=== PATIENT | male | born 1995 | race African-American/Black ===

== ENCOUNTER 2022-09-19 16:14 | Emergency (ER) | payer SELFPAY ==
[2022-09-19 17:00] LABS: Protime INR 1.35
[2022-09-19 17:19] LABS: Absolute Lymphocytes (CBC) 0.4 K/uL (0.7-4.9); Hematocrit 37.5 % (39.6-49.0); Lymphocytes % 19.6 % (15.3-44.8); MPV 7.5 fL (7.6-11.3); Platelets 169 thou/uL (152-406); RBC Red Blood Cell Count 4.17 M/uL (4.33-5.43)
[2022-09-19 17:41] LABS: ALT/SGPT 21 U/L (16-61); AST/SGOT 21 U/L (15-37); Albumin 3.3 g/dL (3.4-5.0); Alkaline Phosphatase 61 U/L (45-117); BUN Blood Urea Nitrogen 8 mg/dL (7-18); Bicarbonate 27 mEq/L (21-32); Bilirubin Direct 0.2 mg/dL (0-0.2); Bilirubin Indirect, Calculated 0.4 mg/dL (0.2-0.8); Bilirubin Total 0.6 mg/dL (0.2-1.0); Glomerular Filtration Rate 123 ml/min (=/>90); Glucose Level 100 mg/dL (74-106); Potassium 3.4 mEq/L (3.5-5.1); Protein, Total 6.2 g/dL (6.4-8.2); Sodium Level 138 mEq/L (136-145)
[2022-09-19 17:48] LABS: Blood Morphology Comment NOT SEEN (NOT SEEN); Platelet Estimate ADEQ; White Blood Cell Scan OK (OK)
--- NOTE | 2022-09-19 23:05 | ER ---
Nurse's Notes [facility] Name: Santiago Matos Age: 27 yrs Sex: Male : 1995 Arrival Date: 09/19/2022 Time: 16:14 Bed 19 Private MD: Diagnosis: Overdose on CBD Presentation: 09/19 16:20 Chief complaint: EMS states: Reportedly ate half of an edible nerds rope 1250 mg, ap3 "delta 8" and feels, "fed up." EMS reports on arrival to scene patient was tachycardic and vomiting. PIV placed and Zofran 4 mg administered. Pt is awake, but drowsy. Responds to loud verbal stimuli. Coronavirus screen: Client denies travel out of the [place] in the last 14 days. Ebola Screen: Patient denies exposure to infectious person. Patient denies travel to an Ebola-affected area in the 21 days before illness onset. Initial Sepsis Screen: Does the patient meet any 2 criteria? No. Patient's initial sepsis screen is negative. Does the patient have a suspected source of infection? No. Patient's initial sepsis screen is negative. Risk Assessment: Do you want to hurt yourself or someone else? Patient reports no desire to harm self or others. Onset of symptoms was September 19, 2022. 16:20 Method Of Arrival: EMS: [facility] ap3 16:20 Acuity: ABRIL 2 ap3 Historical: - Allergies: 16:23 Unable to obtain; ap3 - Home Meds: 16:26 Unable to obtain [Active]; ap3 - PMHx: 16:27 Unable to Obtain; ap3 - PSHx: 16:26 Unable to Obtain; ap3 - Immunization history:: Adult Immunizations not immunized. - Social history:: Smoking status: unknown. Screenin:19 [facility] ED Fall Risk Assessment (Adult) History of falling in the last 3 months, rs5 including since admission No falls in past 3 months (0 pts) Confusion or Disorientation Yes (5 pts) Intoxicated or Sedated Yes (3 pts) Impaired Gait Yes (1 pt) Mobility Assist Device Used No (0 pt) Altered Elimination No (0 pt) Score/Fall Risk Level 3 or more points = High Risk Oriented to surroundings, Maintained a safe environment, Assessed \\T\\ reinforced patient's understanding of fall precautions, Hourly rounding (assess needs \\T\\ fall precautionary measures) done. 16:19 Abuse screen: Denies threats or abuse. Nutritional screening: No deficits noted. rs5 Tuberculosis screening: No symptoms or risk factors identified. Assessment: 16:19 General: Appears in no apparent distress. comfortable, Behavior is calm, cooperative, rs5 drowsy, quiet. Pain: Denies pain. Neuro: Level of Consciousness is awake, obeys commands, lethargic, stuporous. Cardiovascular: Heart tones S1 S2 Rhythm is regular. Respiratory: Airway is patent Respiratory effort is even, unlabored, shallow, Respiratory pattern is regular, symmetrical, Breath sounds are clear bilaterally. GI: Abdomen is flat, non-distended, Bowel sounds present X 4 quads. Abd is soft and non tender X 4 quads. : No signs and/or symptoms were reported regarding the genitourinary system. EENT: No signs and/or symptoms were reported regarding the EENT system. Derm: Skin is dry, Skin is normal, Skin temperature is warm. Musculoskeletal: Range of motion: intact in all extremities. 16:28 Reassessment: Consuted poison control. CASE # [id number]. Recommendation to monitor for ss [employer] depression and obtain tox work up. Symptomatic treatment and monitor for 6 hours or until symptoms improve. 16:30 Reassessment: Pt denies wanting to call or contact friend or family members. Neuro: rs5 Level of Consciousness is awake, obeys commands, lethargic, Oriented to person, place, time, situation. Respiratory: Airway is patent Respiratory effort is even, unlabored, Respiratory pattern is regular, symmetrical, Breath sounds are clear bilaterally. 17:34 Reassessment: Pt in bed with eyes closed. Bed in lowest position, side rails up x2. rs5 Respiratory: Respiratory effort is even, unlabored, Respiratory pattern is regular, symmetrical. 18:20 Reassessment: No changes from previously documented assessment. . rs5 19:41 Reassessment: rec'd pt asleep respirations even non labored awakens to verbal stimuli kl answers questions appropriatly bed in low position side rails up x 2 call horton in reach. 23:13 Reassessment: Patient appears in no apparent distress at this time. Patient denies pain kl at this time. Patient states feeling better. Patient states symptoms have improved. Overdose: 16:19 [place] Suicide Severity Screening: "In the past month, have you wished you were rs5 or wished you could go to sleep and not wake up?" Patient responds "no." "In the past month, have you actually had any thoughts of killing yourself?" Patient responds "no." "In your lifetime, have you ever done anything, started to do anything, or prepared to do anything to end your life?" Patient responds "no.". 16:19 [place] Suicide Severity Screening: "In the past month, have you wished you were rs5 or wished you could go to sleep and not wake up?" Patient responds "no.". 23:14 [place] Suicide Severity Screening: "In the past month, have you wished you were kl or wished you could go to sleep and not wake up?" Patient responds "no." "In the past month, have you actually had any thoughts of killing yourself?" Patient responds "no.". 23:14 [place] Suicide Severity Screening: "In the past month, have you wished you were kl or wished you could go to sleep and not wake up?" Patient responds "no." "In the past month, have you actually had any thoughts of killing yourself?" Patient responds "no.". Vital Signs: 16:07 BP 111 / 70; Pulse 86; Resp 13; Temp 98.1; Pulse Ox 99% on R/A; rs5 16:15 BP 118 / 78; Pulse 83; Resp 12; Pulse Ox 99% on R/A; rs5 16:20 BP 111 / 70; Pulse 89; Resp 12; Temp 98.8(O); Pulse Ox 100% on R/A; Pain 0/10; ap3 17:17 BP 120 / 76; Pulse 80; Resp 14; Pulse Ox 99% on R/A; rs5 18:16 BP 101 / 65; Pulse 77; Resp 15; Pulse Ox 99% on R/A; rs5 19:41 BP 101 / 55; Pulse 77; Resp 14; Pulse Ox 98% on R/A; kl 21:54 BP 100 / 59; Pulse Ox 98% on R/A; kl 23:13 BP 98 / 61; Pulse 75; Resp 16; Pulse Ox 98% on R/A; kl 16:20 Pain Scale: Adult ap3 ED Course: 16:10 Maintain EMS IV. Dressing intact. Good blood return noted. Site clean \\T\\ dry. Gauge \\T\\ rs 5 site: 20 gauge to right ac. IV is patent, is intact, with fluids infusing freely, with good blood return. 16:17 Patient arrived in ED. rs5 16:19 Jimena Dietz FNP-C is [facility]. kb 16:19 Edward Mccall MD is Attending Physician. kb 16:19 Isacc Ornelas, RN is Primary Nurse. rs5 16:19 Patient has correct armband on for positive identification. Bed in low position. Call rs5 light in reach. Side rails up X2. 16:23 Triage completed. ap3 16:23 Arm band placed on right wrist. ap3 23:13 No provider procedures requiring assistance completed. IV discontinued, intact, kl bleeding controlled, No redness/swelling at site. Pressure dressing applied. Administered Medications: No medications were administered Medication: 19:42 VIS not applicable for this client. Outcome: 23:05 Discharge ordered by . kb 23:14 Discharged to home ambulatory. kl 23:14 Condition: improved 23:14 Discharge instructions given to patient, Instructed on discharge instructions, follow up and referral plans. Demonstrated understanding of instructions. 23:15 Patient left the ED. Signatures: Jimena Dietz FNP-C FNP-Melissa Dickens RN SHANIA Nasra Lutz RN RN ss Prokisch, Amanda, RN RN ap3 Sotelo, Ricky, RN RN rs5 Corrections: (The following items were deleted from the chart) 16:27 16:23 Home Meds: None; ap3 ap3 16:27 16:23 PMHx: None; ap3 ap3 16:27 16:23 PSHx: None; ap3 ap3 17:15 14:19 Patient has correct armband on for positive identification. Bed in low position. rs5 Call light in reach. Side rails up X2. rs5 17:15 14:19 Abuse screen: Denies threats or abuse. rs5 rs5 17:15 14:19 [facility] ED Fall Risk Assessment (Adult) History of falling in the last 3 months, rs5 including since admission No falls in past 3 months (0 pts) Confusion or Disorientation Yes (5 pts) Intoxicated or Sedated Yes (3 pts) Impaired Gait Yes (1 pt) Mobility Assist Device Used No (0 pt) Altered Elimination No (0 pt) Score/Fall Risk Level 3 or more points = High Risk Oriented to surroundings, Maintained a safe environment, Assessed \\T\\ reinforced patient's understanding of fall precautions, Hourly rounding (assess needs \\T\\ fall precautionary measures) done, rs5 17:15 14:19 Nutritional screening: No deficits noted. rs5 rs5 17:15 14:19 Tuberculosis screening: No symptoms or risk factors identified. rs5 rs5 17:15 14:19 Maintain EMS IV. Dressing intact. Good blood return noted. Site clean \\T\\ dry. rs5 Gauge \\T\\ site: 20 gauge to right ac. IV is patent, is intact, with fluids infusing freely, with good blood return, rs5 17:16 16:10 Patient has correct armband on for positive identification. Bed in low position. rs5 Call light in reach. Side rails up X2. rs5 17:16 16:10 [facility] ED Fall Risk Assessment (Adult) History of falling in the last 3 months, rs5 including since admission No falls in past 3 months (0 pts) Confusion or Disorientation Yes (5 pts) Intoxicated or Sedated Yes (3 pts) Impaired Gait Yes (1 pt) Mobility Assist Device Used No (0 pt) Altered Elimination No (0 pt) Score/Fall Risk Level 3 or more points = High Risk Oriented to surroundings, Maintained a safe environment, Assessed \\T\\ reinforced patient's understanding of fall precautions, Hourly rounding (assess needs \\T\\ fall precautionary measures) done, rs5 17:17 16:10 Nutritional screening: No deficits noted. rs5 rs5 17:17 16:10 Abuse screen: Denies threats or abuse. rs5 rs5 17:17 16:10 Tuberculosis screening: No symptoms or risk factors identified. rs5 rs5 17:18 16:10 [place] Suicide Severity Screening: "In the past month, have you wished you were rs5 or wished you could go to sleep and not wake up?" Patient responds "no." "In the past month, have you actually had any thoughts of killing yourself?" Patient responds "no." "In your lifetime, have you ever done anything, started to do anything, or prepared to do anything to end your life?" Patient responds "no." rs5
--- NOTE | 2022-09-19 23:05 | EDPHYS ---
Physician Documentation [facility] Name: Santiago Matos Age: 27 yrs Sex: Male : 1995 Arrival Date: 09/19/2022 Time: 16:14 Bed 19 Private MD: ED Physician Edward Mccall HPI: 09/19 23:06 This 27 yrs old Black Male presents to ER via EMS with complaints of Drug Abuse, kb Possible Overdose. 23:06 The patient presents to the emergency department after a known overdose, a result of kb recreational substance abuse. Context: Method: the patient has a confirmed or suspected ingestion, Time: just prior to arrival, Extent: gummy rope, the [place] Associated signs and symptoms: Pertinent positives: decreased level of consciousness, vomiting. Severity of symptoms: At their worst the symptoms were moderate in the emergency department the symptoms are unchanged. The patient has not experienced similar symptoms in the past. The patient has not recently seen a physician. Pt ate about 1/3 of a CBD rope that contained 1250mg of CBD. Started having nausea and vomiting so he called 911. Reports he is just really high. Denies abd pain, chest pain, shortness of breath. Pt very drowsy, awakens to verbal stimuli. . Historical: - Allergies: 16:23 Unable to obtain; ap3 - Home Meds: 16:26 Unable to obtain [Active]; ap3 - PMHx: 16:27 Unable to Obtain; ap3 - PSHx: 16:26 Unable to Obtain; ap3 - Immunization history:: Adult Immunizations not immunized. - Social history:: Smoking status: unknown. ROS: 23:06 Constitutional: Negative for fever, chills, and weight loss. kb 23:06 Abdomen/GI: Positive for nausea and vomiting, Negative for abdominal pain, diarrhea, constipation. 23:06 Neuro: Positive for altered mental status. 23:06 All other systems are negative. Exam: 17:15 ECG was reviewed by the Attending Physician. kb 23:06 Constitutional: This is a well developed, well nourished patient who is awake, alert, kb and in no acute distress. Head/Face: Normocephalic, atraumatic. ENT: Moist Mucous membranes Cardiovascular: Regular rate and rhythm with a normal S1 and S2. No gallops, murmurs, or rubs. No pulse deficits. Respiratory: Respirations even and unlabored. No increased work of breathing. Talking in full sentences Abdomen/GI: Soft, non-tender. No distention Skin: Warm, dry with normal turgor. Normal color. MS/ Extremity: Pulses equal, no cyanosis. Neurovascular intact. Full, normal range of motion. 23:06 Neuro: Orientation: to person, place, time \T\ situation. Mentation: responsive to voice able to follow commands, Memory: is normal. Vital Signs: 16:07 BP 111 / 70; Pulse 86; Resp 13; Temp 98.1; Pulse Ox 99% on R/A; rs5 16:15 BP 118 / 78; Pulse 83; Resp 12; Pulse Ox 99% on R/A; rs5 16:20 BP 111 / 70; Pulse 89; Resp 12; Temp 98.8(O); Pulse Ox 100% on R/A; Pain 0/10; ap3 17:17 BP 120 / 76; Pulse 80; Resp 14; Pulse Ox 99% on R/A; rs5 18:16 BP 101 / 65; Pulse 77; Resp 15; Pulse Ox 99% on R/A; rs5 19:41 BP 101 / 55; Pulse 77; Resp 14; Pulse Ox 98% on R/A; kl 21:54 BP 100 / 59; Pulse Ox 98% on R/A; kl 23:13 BP 98 / 61; Pulse 75; Resp 16; Pulse Ox 98% on R/A; kl 16:20 Pain Scale: Adult ap3 MDM: 16:19 Patient medically screened. kb 23:10 Differential diagnosis: Ingestion/exposure to CBD polypharmacy, over medication. Data kb reviewed: vital signs, nurses notes. Historians other than the Patient: EMS: [facility]. Counseling: I had a detailed discussion with the patient and/or guardian regarding: the historical points, exam findings, and any diagnostic results supporting the discharge/admit diagnosis, lab results, the need for outpatient follow up, a family practitioner, to return to the emergency department if symptoms worsen or persist or if there are any questions or concerns that arise at home. ED course: Pt now awake, alert, oriented and ambulatory with steady gait. Pt was monitored for 6 hours per Poison control's recommendation. Now safe to discharge home. Pt denies suicidal ideations or intent to harm. . 09/19 16:19 Order name: Acetaminophen; Complete Time: 17:46 kb 09/19 16:19 Order name: Basic Metabolic Panel; Complete Time: 17:46 kb 09/19 16:19 Order name: CBC with Diff; Complete Time: 17:51 kb 09/19 16:19 Order name: ETOH Level; Complete Time: 17:31 kb 09/19 16:19 Order name: Hepatic Function; Complete Time: 17:46 kb 09/19 16:19 Order name: PT-INR; Complete Time: 17:05 kb 09/19 16:19 Order name: Ptt, Activated; Complete Time: 17:05 kb 09/19 16:19 Order name: Salicylate; Complete Time: 17:44 kb 09/19 16:19 Order name: Urine Drug Screen kb 09/19 17:26 Order name: CBC Smear Scan; Complete Time: 17:51 EDMS 09/19 16:19 Order name: EKG; Complete Time: 16:20 kb 09/19 16:19 Order name: EKG - Nurse/Tech; Complete Time: 17:12 kb 09/19 16:19 Order name: IV Saline Lock; Complete Time: 16:56 kb 09/19 16:19 Order name: Labs collected and sent; Complete Time: 16:56 kb 09/19 16:19 Order name: Suicide Screening ([place]); Complete Time: 17:12 kb 09/19 16:19 Order name: Misc. Order: call poison control for recommendation; Complete Time: 16:56 kb EC:15 Rate is 90 beats/min. Rhythm is regular. QRS [place] is Normal. [place] interval is normal at kb 140 msec. QRS interval is normal at 80 msec. QT interval is normal at 411 msec. Administered Medications: No medications were administered Disposition Summary: 09/19/22 23:05 Discharge Ordered Location: Home kb Condition: Stable kb Diagnosis - Overdose on CBD kb Followup: kb - With: Emergency Department - When: As needed - Reason: Worsening of condition Followup: kb - With: Private Physician - When: 2 - 3 days - Reason: Recheck today's complaints, Continuance of care, Re-evaluation by your physician Discharge Instructions: - Discharge Summary Sheet kb - Illegal Drug Use Information, Adult kb Forms: - Medication Reconciliation Form kb - Thank You Letter kb - Antibiotic Education kb - Prescription Opioid Use kb - Patient Portal Instructions kb - Leadership Thank You Letter kb Signatures: Dispatcher [employer] Jimena Lockwood FNP-C FNP-Melissa Dickens, RN RN Patricia Lugo RN RN ap3 Corrections: (The following items were deleted from the chart) 16:23 Home Meds: None; ap3 ap3 16:23 PMHx: None; ap3 ap3 16:23 PSHx: None; ap3 ap3
[2022-09-19 23:21] VITALS: TEMP 98.8
[2022-09-19 23:25] VITALS: O2SAT 98
[2022-09-19 23:27] VITALS: BP 98/61
== END 2022-09-19 23:15 | disposition home or self-care (01) ==
LOC: ER 16:14 → EDSEX 16:14 → ER 23:15
DX: T50.991A Poisoning by other drugs, medicaments and biological substances, accidental (unintentional), initial encounter (principal)
CPT/HCPCS: 36415; 80048; 80076; 80143; 80179; 82077; 85025; 85610; 85730; 93005

== ENCOUNTER 2022-10-18 20:04 | Emergency (ER) | payer SELFPAY ==
[2022-10-18 20:47] LABS: Absolute Lymphocytes (CBC) 1.6 K/uL (0.7-4.9); Hematocrit 33.3 % (39.6-49.0); Lymphocytes % 33.8 % (15.3-44.8); MCV 90.7 fL (80-100); MPV 7.3 fL (7.6-11.3); Platelets 174 thou/uL (152-406); RBC Red Blood Cell Count 3.67 M/uL (4.33-5.43)
[2022-10-18] MEDS ORDERED: NA CHLORIDE 0.9% 500 ML ONE (20:49)
[2022-10-18 20:50] LABS: Protime INR 1.41
[2022-10-18] MEDS ORDERED: TDAP (DIPHTH,PERTUSS(ACELL),TET VAC) 0.5 ML VIAL IMVAC ONE (20:50)
[2022-10-18 21:02] LABS: Potassium 3.1 mEq/L (3.5-5.1)
--- NOTE | 2022-10-18 21:23 | EDPHYS ---
Physician Documentation [facility] Name: Santiago Matos Age: 27 yrs Sex: Male : 1995 Arrival Date: 10/18/2022 Time: 20:04 Bed 3 Private MD: ED Physician Edward Mccall HPI: 10/18 20:51 This 27 yrs old Black Male presents to ER via EMS with complaints of Injury to left rn hand. 20:51 The patient or guardian reports a laceration, complex, 4 cm(s). The complaints affect rn the left hand diffusely. Onset: The symptoms/episode began/occurred at an unknown time. Modifying factors: The symptoms are alleviated by nothing, the symptoms are aggravated by Movement and pressure. Severity of symptoms: At their worst the symptoms were moderate, in the emergency department the symptoms are unchanged. It is unknown whether or not the patient has had similar symptoms in the past. EMS reports were called out for laceration to the left wrist and hand, and altered mental status. Patient was on the ground and unknown circumstances of laceration but alcohol and broken bottles were found at the scene. No knife. No arterial bleeding noted and wound wrapped by EMS. Patient was also covered in vomit.. Historical: - Allergies: 20:19 PENICILLINS; rv - PMHx: 20:19 Asthma; rv - PSHx: 20:19 None; rv - Immunization history:: Adult Immunizations unknown. - Social history:: Smoking status: unknown. - Family history:: not pertinent. - Hospitalizations: : No recent hospitalization is reported. ROS: 20:51 Constitutional: Negative for fever, chills, and weight loss, Cardiovascular: Negative rn for chest pain, palpitations, and edema, Respiratory: Negative for shortness of breath, cough, wheezing, and pleuritic chest pain, Abdomen/GI: Negative for abdominal pain, nausea, vomiting, diarrhea, and constipation, Back: Negative for injury and pain, MS/Extremity: Positive for laceration to left hand/wrist Neuro: Negative for headache, seizure Exam: 20:51 Constitutional: This is a well developed, well nourished patient who is somnolent but rn awakens to voice and tactile stimulation. Covered in bright red emesis, does not appear to be bloody emesis Head/Face: Normocephalic, atraumatic. ENT: Dry mucous membranes, no oral injury Neck: No cervical tenderness Cardiovascular: Regular rate and rhythm. No pulse deficits. Respiratory: No increased work of breathing, no retractions or nasal flaring. Abdomen/GI: Soft, non-tender Skin: Warm, dry MS/ Extremity: Pulses equal, no cyanosis. 4 cm linear laceration with moderate depth at the junction of the left hand and wrist. No arterial bleeding. Venous bleeding noted that stops easily with direct pressure. Patient unable to flex middle finger completely. Able to flex other 4 digits moderately but with pain. Neuro: Awake, somnolent but awakens easily to voice and when examining left wrist laceration Vital Signs: 20:17 BP 100 / 59; Pulse 62; Resp 16; Temp 98; Pulse Ox 100% ; Weight 68.04 kg; Height 6 ft. rv 0 in. ; 21:04 BP 103 / 60; Pulse 61; Resp 22; Pulse Ox 99% ; rv 22:00 BP 101 / 60; Pulse 61; Resp 18 S; Pulse Ox 100% on R/A; ha1 20:17 Body Mass Index 20.34 (68.04 kg, 182.88 cm) rv [place] Coma Score: 21:04 Eye Response: to pain(2). Motor Response: localizes pain(5). Verbal Response: rv confused(4). Total: 11. MDM: 20:06 Patient medically screened. cp 21:15 Differential diagnosis:. rn 21:19 Data reviewed: vital signs, nurses notes, radiologic studies, plain films, and as a rn result, I will admit patient. Consideration of Admission/Observation Patient was admitted/placed on observation. Escalation of care including admission/observation considered. Management of patient was discussed with the following: Building Code Inspector: . 21:20 Counseling: I had a detailed discussion with the patient and/or guardian regarding the rn historical points, exam findings, and any diagnostic results supporting the discharge/admit diagnosis, radiology results, the need to transfer to another facility. Response to treatment: the patient's symptoms have mildly improved after treatment, and as a result, I will admit patient. ED course: . ED course: . ED course: Consulted with plastics at [facility] for dirty laceration with tendon injury, will take as transfer for consultation. . 10/18 20:10 Order name: CBC with Diff; Complete Time: 21:05 rn 10/18 20:10 Order name: Basic Metabolic Panel; Complete Time: 21: rn 10/18 20:10 Order name: Protime (+inr); Complete Time: 21: rn 10/18 20:10 Order name: Ptt, Activated; Complete Time: 21: rn 10/18 20:10 Order name: ETOH Level; Complete Time: 21: rn 10/18 20:09 Order name: XRAY Hand LEFT 3 View; Complete Time: 21: rn 10/18 20:09 Order name: Wound Care; Complete Time: 20: rn 10/18 20:09 Order name: Wound dressing; Complete Time: 20: rn 10/18 20:10 Order name: Cardiac monitoring; Complete Time: : rn 10/18 20:10 Order name: O2 Sat Monitoring; Complete Time: : rn 10/18 20:10 Order name: IV Start; Complete Time: 20: rn Administered Medications: 20:40 Drug: NS 0.9% IV 500 ml Route: IV; Rate: bolus; Site: right forearm; rv 22:24 Follow up: Response: No adverse reaction; IV Status: Completed infusion; IV Intake: ha1 500ml 21:00 Not Given (Duplicate Order): Tetanus Toxoid,Adsorbed IM 0.5 ml IM once; Provide Vaccine rv Information Statement (VIS). 21:00 Drug: Boostrix Tdap IM 0.5 ml Route: IM; Site: left deltoid; rv 22:23 Follow up: Response: No adverse reaction ha1 22:12 Drug: fentaNYL (PF) IVP 25 mcg Route: IVP; Site: right forearm; ha1 22:27 Follow up: Response: No adverse reaction; Pain is decreased; RASS: Alert and Calm (0) ha1 Disposition Summary: 10/18/22 21:23 Transfer Ordered Transfer Location: [facility] rn Reason: Higher level of care rn Condition: Stable rn Problem: new rn Symptoms: have improved rn Accepting Physician: (10/18/22 22:27) ha1 Diagnosis - Laceration without foreign body of left wrist - with tendon injury rn Forms: - Medication Reconciliation Form rn - SBAR form rn Signatures: Dispatcher [employer] EDMS Edward Mccall MD MD rn Page, Corey, PA PA cp Vicente, Ronaldo, RN Suha Carver RN RN ha1 Corrections: (The following items were deleted from the chart) 20:20 20:19 Allergies: Unable to obtain; rv rv : 20:10 Wrist Left 3 View+RAD.RAD.BRZ ordered. EDMS EDMS 22: 21:23 Dr. miles ha1
--- NOTE | 2022-10-18 21:23 | ER ---
Nurse's Notes [facility] Name: Santiago Matos Age: 27 yrs Sex: Male : 1995 Arrival Date: 10/18/2022 Time: 20:04 Bed 3 Private MD: Diagnosis: Laceration without foreign body of left wrist-with tendon injury Presentation: 10/18 20:17 Chief complaint: EMS states: found unconscious in a parking lot, with laceration to the rv left hand. continuous bleeding, controlled with pressure dressing. Coronavirus screen: At this time, the client does not indicate any symptoms associated with coronavirus-19. Ebola Screen: No symptoms or risks identified at this time. Initial Sepsis Screen: Does the patient meet any 2 criteria? No. Patient's initial sepsis screen is negative. Does the patient have a suspected source of infection? No. Patient's initial sepsis screen is negative. Risk Assessment: Do you want to hurt yourself or someone else? Patient reports no desire to harm self or others. Onset of symptoms is unknown. 20:17 Method Of Arrival: EMS: [facility] rv 20:17 Acuity: ABRIL 2 rv 20:20 Chief complaint: Patient states: sustained laceration to the left hand after rv accidentally breaking a glass bottle. Triage Assessment: 20:21 General: Appears unkempt, Behavior is agitated, drowsy. Pain: Complains of pain in left rv hand. Neuro: Level of Consciousness is lethargic. Cardiovascular: Capillary refill < 3 seconds. Respiratory: Airway is patent Respiratory effort is even, unlabored. Injury Description: Laceration sustained to palmar aspect of distal phalanx of left ring finger and heel of left hand is full thickness, 2.6 to 7.5 cm long, bleeding profusely. Historical: - Allergies: 20:19 PENICILLINS; rv - PMHx: 20:19 Asthma; rv - PSHx: 20:19 None; rv - Immunization history:: Adult Immunizations unknown. - Social history:: Smoking status: unknown. - Family history:: not pertinent. - Hospitalizations: : No recent hospitalization is reported. Screenin:23 [facility] ED Fall Risk Assessment (Adult) History of falling in the last 3 months, rv including since admission No falls in past 3 months (0 pts) Confusion or Disorientation Yes (5 pts) Score/Fall Risk Level 3 or more points = High Risk Oriented to surroundings, Maintained a safe environment, Educated pt \T\ family on fall prevention, incl call for assistance when getting out of bed, Assessed \T\ reinforced patient's understanding of fall precautions, Provided non-skid footwear, Hourly rounding (assess needs \T\ fall precautionary measures) done, Used ambulatory aids as needed (educated on \T\ assisted with), Used gait belt as appropriate Implemented a Fall Risk Plan of Care, Apply high fall risk patient identification: yellow non skid footwear/ fall signage, Placed fall mat w/ non beveled edge next to bed, Activated bed/chair alarm, Remained w/in arm's length of patient and in sight while toileting, Offered frequent toileting (1:1 observation), Remained with patient while ambulating, Utilized family, sitter, or virtual retail selling floor leader as indicated. Abuse screen: Denies threats or abuse. Denies injuries from another. Nutritional screening: No deficits noted. Tuberculosis screening: No symptoms or risk factors identified. Assessment: 20:23 Reassessment: see triage notes. rv 21:00 Reassessment: Patient and/or family updated on plan of care and expected duration. Pain ha1 level reassessed. Patient is alert, oriented x 3, equal unlabored respirations, skin warm/dry/pink. 21:09 Reassessment: ROGERIO ORELLANA [phone] GF. rv 22:00 Reassessment: Patient and/or family updated on plan of care and expected duration. Pain ha1 level reassessed. Patient is alert, oriented x 3, equal unlabored respirations, skin warm/dry/pink. Vital Signs: 20:17 BP 100 / 59; Pulse 62; Resp 16; Temp 98; Pulse Ox 100% ; Weight 68.04 kg; Height 6 ft. rv 0 in. ; 21:04 BP 103 / 60; Pulse 61; Resp 22; Pulse Ox 99% ; rv 22:00 BP 101 / 60; Pulse 61; Resp 18 S; Pulse Ox 100% on R/A; ha1 20:17 Body Mass Index 20.34 (68.04 kg, 182.88 cm) rv Mynor Coma Score: 21:04 Eye Response: to pain(2). Motor Response: localizes pain(5). Verbal Response: rv confused(4). Total: 11. ED Course: 20:04 Patient arrived in ED. rv1 20:06 Suhas Warren PA is PHCP. cp 20:06 Edward Mccall MD is Attending Physician. cp 20:15 Clyde Bhat RN is Primary Nurse. rv 20:19 Triage completed. rv 20:22 Arm band placed on right wrist. rv 20:23 Placed in gown. Bed in low position. Side rails up X2. Client placed on continuous rv cardiac and pulse oximetry monitoring. NIBP monitoring applied. rn chronic on. 20:23 Maintain EMS IV. Dressing intact. Good blood return noted. Site clean \T\ dry. Gauge \T\ rv site: 20 LFA, 18 RFA. 21:15 XRAY Hand LEFT 3 View In Process Unspecified. EDMS 22:26 Provided Education on: need for transfer . ha1 22:26 No provider procedures requiring assistance completed. Patient transferred, IV remains ha1 in place. Administered Medications: 20:40 Drug: NS 0.9% IV 500 ml Route: IV; Rate: bolus; Site: right forearm; rv 22:24 Follow up: Response: No adverse reaction; IV Status: Completed infusion; IV Intake: ha1 500ml 21:00 Not Given (Duplicate Order): Tetanus Toxoid,Adsorbed IM 0.5 ml IM once; Provide Vaccine rv Information Statement (VIS). 21:00 Drug: Boostrix Tdap IM 0.5 ml Route: IM; Site: left deltoid; rv 22:23 Follow up: Response: No adverse reaction ha1 22:12 Drug: fentaNYL (PF) IVP 25 mcg Route: IVP; Site: right forearm; ha1 22:27 Follow up: Response: No adverse reaction; Pain is decreased; RASS: Alert and Calm (0) ha1 Medication: 21:05 Vaccine Information Statement (VIS) provided today. Questions and/or concerns rv addressed. VIS edition date: October 18, 2022. Intake: 22:24 IV: 500ml; Total: 500ml. ha1 Outcome: 21:23 ER care complete, transfer ordered by . rn 22:26 Transferred by ground EMS to [facility]. ha1 22:26 Condition: stable 22:26 Discharge instructions given to patient, family, Instructed on the need for transfer, Demonstrated understanding of instructions. 22:27 Patient left the ED. ha1 Signatures: Dispatcher [employer] EDEdward Priest MD MD rn Suhas Warren PA PA cp Vicente, Ronaldo, RN RN rv Suha Braxton RN RN ha1 Naima Lucia rv1 Corrections: (The following items were deleted from the chart) 20:20 20:19 Allergies: Unable to obtain; rv rv 22:27 22:23 fentaNYL (PF) IVP 25 mcg IVP in right forearm ha1 ha1
--- NOTE | 2022-10-18 21:49 | RAD REPORT ---
EXAM DESCRIPTION: VINCENZO SHEN - 10/18/2022 9:13 pm CLINICAL HISTORY: injury/laceration COMPARISON: No comparisons TECHNIQUE: Left hand, 3 views. FINDINGS: No fracture is identified. No dislocation or periosteal reaction noted. Dorsal subluxation of the distal ulna. Joint alignment is otherwise maintained. No foreign body. Soft tissue swelling the along the fourth digit. IMPRESSION: Dorsal subluxation of the distal ulna. Soft tissues swelling along the fourth digit.
[2022-10-18] MEDS ORDERED: FENTANYL CITR 100 MCG/2 ML ONE (22:26)
[2022-10-18 23:28] VITALS: TEMP 98
[2022-10-18 23:32] VITALS: BP 101/60; O2SAT 100
== END 2022-10-18 22:27 | disposition short-term general hospital (02) ==
LOC: ER 20:04
DX: S61.512A Laceration without foreign body of left wrist, initial encounter (principal); Z88.0 Allergy status to penicillin
CPT/HCPCS: 36415; 80048; 82077; 85025; 85610; 85730; 96361; 96372; 96374; 99285; J3010; J7040